=== PATIENT | male | born 1950 | race Caucasian/White ===

== ENCOUNTER 2016-03-26 11:43 | Emergency (ER) | payer MEDICARE ==
[2014-05-01 07:55] VITALS: BP 145/74
[~2016-03-26] VITALS: Ht 182.9 cm; Wt 89.8 kg
[~2016-03-26 11:43] MED LIST: CHOL20004 PO; GLUC100018 PO; OMEG1CAP65 PO
[2016-03-26] MEDS ORDERED: LIDOCAINE 1% / SOD BICARB 8.4% 20 ML VIAL. IJ ONE (13:30)
--- NOTE | 2016-03-26 13:33 | PHYS DOC ---
Past Medical History Past Medical History: No Pertinent History Past Surgical History: No Surgical History Alcohol Use: None Drug Use: None Adult General Chief Complaint Chief Complaint: FINGER INJURY [facility] HPI Patient is a 65 year old male presents emergency department stating that he was trying to remove the details put her from his truck when the tongue came back and dropped on his left ring finger. He states that he is having pain and discomfort along the palmar side of the finger. He has tenderness along the back side of the hand. Patient states his tetanus immunization is up-to-date. He has a U shape laceration with bleeding controlled. Cap refill brisk less than 2 seconds. Patient is right-hand dominant Review of Systems Review of Systems Constitutional: Denies fever or chills [] Eyes: Denies change in visual acuity, redness, or eye pain [] HENT: Denies nasal congestion or sore throat [] Respiratory: Denies cough or shortness of breath [] Cardiovascular: No additional information not addressed in HPI [] GI: Denies abdominal pain, nausea, vomiting, bloody stools or diarrhea [] : Denies dysuria or hematuria [] Musculoskeletal: Denies back pain or joint pain [] Integument: Denies rash or skin lesions. Laceration to the left 4th finger Neurologic: Denies headache, focal weakness or sensory changes [] Current Medications Current Medications Current Medications Medications (Trade) Dose Ordered Sig/Luisa Start Time Stop Time Status Last Admin Dose Admin Lidocaine/Sodium Bicarbonate (Buffered Lidocaine 1%) 20 ml 1X ONCE 03/26/16 13:30 03/26/16 13:33 DC 03/26/16 13:43 20 ML Allergies Allergies Allergies Coded Allergies Type Severity Reaction Last Updated Verified Iodinated Contrast Media - IV Dye Allergy Mild Hives 05/01/14 Yes Physical Exam Physical Exam Constitutional: Well developed, well nourished, no acute distress, non-toxic appearance. [] HENT: Normocephalic, atraumatic, bilateral external ears normal, oropharynx moist, no oral exudates, nose normal. [] Eyes: PERRLA, EOMI, conjunctiva normal, no discharge. [] Neck: Normal range of motion, no tenderness, supple, no stridor. [] Cardiovascular:Heart rate regular rhythm, no murmur [] Lungs & Thorax: No respiratory distress noted Skin: Warm, dry, no erythema, no rash. Patient with a 2 cm U-shaped laceration to the left fourth finger. Bleeding is currently controlled. Back: No tenderness Extremities: No tenderness, no cyanosis, no clubbing, ROM intact, no edema. [] Neurologic: Alert and oriented X 3, normal motor function, normal sensory function, no focal deficits noted. [] Psychologic: Affect normal, judgement normal, mood normal. [] Current Patient Data Vital Signs Vital Signs Date Time Temp Pulse Resp B/P Pulse Ox O2 Delivery O2 Flow Rate FiO2 03/26/16 12:00 97.8 76 16 98 Room Air 97.8 EKG EKG [] Radiology/Procedures Radiology/Procedures [] Course & Med Decision Making Course & Med Decision Making Pertinent Labs and Imaging studies reviewed. (See chart for details) Patient was noted to have a fracture in the distal part of the finger. Sutures was placed in the finger at the laceration site. Patient will be placed on Bactrim 1 tablet twice a day with recommendations to follow-up with orthopedic in the next 3-5 days. Keep the site clean and dry clean the site with soap and water and apply antibiotic ointment to the area twice a day. Sutures out in 7- 10 days. Watch for signs and symptoms of infection: Redness, warmth, tenderness or any yellow/greenish drainage of a come from the site. If this should occur follow-up through primary care physician immediately. [] Dragon Disclaimer Dragon Disclaimer This electronic medical record was generated, in whole or in part, using a voice recognition dictation system. Departure Departure Impression: Primary Impression: Open fracture of phalanx of left ring finger Disposition: 01 HOME, SELF-CARE Condition: STABLE Referrals: VAUGHN HERRMANN MD (PCP) Patient Instructions: Finger Fracture-Brief, Laceration Care, Adult, Easy-to- Read Additional Instructions: Keep the area clean and dry. Clean the site with soap and water and apply antibiotic ointment to the area twice a day. Watch for signs and symptoms of infection: Redness, warmth, tenderness or any yellow/greenish drainage of a come from the site physician occur follow-up through primary care physician immediately. Tylenol or ibuprofen for pain and discomfort. Medication as prescribed. Follow-up with orthopedic in the next 3-5 days. Wear the splint to follow-up with orthopedic. Return back to emergency prior signs symptoms of become worse. Scripts Sulfamethoxazole/Trimethoprim (Bactrim Ds Tablet)1 Each Tablet1 Tab PO BID #20 TAB Prov:VALE MAHER NP 03/26/16 Laceration/Wound Repair Laceration/Wound Repair : Wound Location: upper extremity Wound's Depth, Shape: superficial Wound Length (cm): 2 Wound Explored: clean Betadine Prep?: Yes Anesthesia: 1% Lidocaine Volume Anesthetic (ccs): 5 Wound Debrided: minimal Wound Repaired With: sutures Suture Size/Type: 4:0, nylon Number of Sutures: 5 Progress Site and soaked in Betadine and water. Approximately 20 minutes. Lidocaine was placed into the area as a digital block. 5 sutures were placed in the site with no difficulty. VALE MAHER NP Mar 26, 2016 13:33
[2016-03-26] MEDS ORDERED: SULF1TAB24 PO (14:09)
--- NOTE | 2016-03-26 14:16 | RAD ---
Three-view left fourth finger radiographs 03/26/2016 Clinical history: Laceration to the left fourth finger. A PA digital radiograph of the left hand was obtained. Oblique and lateral digital radiographs of the left fourth finger were obtained. An acute oblique nondisplaced fracture of the proximal diaphysis of the distal phalanx of the left fourth finger is seen. No additional fracture is noted. No radiopaque foreign body is seen. Impression: Acute nondisplaced fracture of the distal phalanx of the left fourth finger.
== END 2016-03-26 14:24 | disposition home or self-care (01) ==
LOC: ER 11:43
DX: S62.665B Nondisplaced fracture of distal phalanx of left ring finger, initial encounter for open fracture (principal); Z91.041 Radiographic dye allergy status; W20.8XXA Other cause of strike by thrown, projected or falling object, initial encounter; Y93.89 Activity, other specified; Y99.8 Other external cause status; Y92.89 Other specified places as the place of occurrence of the external cause
CPT/HCPCS: 12001; 29130; 73140; 99284-25

== ENCOUNTER 2016-04-04 18:21 | Emergency (ER) | payer MEDICARE ==
[~2016-04-04 18:21] MED LIST changes: +SULF1TAB24 PO
[2016-04-04 18:54] VITALS: BP 115/68
--- NOTE | 2016-04-04 18:54 | PHYS DOC ---
Past Medical History Past Medical History: No Pertinent History Past Surgical History: No Surgical History Alcohol Use: None Drug Use: None Adult General Chief Complaint Chief Complaint: SUTURE/STAPLE REMOVAL [facility] HPI Patient is a 65 year old presents emergency department to have his sutures removed from his left ring finger. Patient states he's had the sutures in for approximately 9 days. Patient denies any drainage discharge or redness from the site. He denies any fever, chills or any nausea vomiting. Review of Systems Review of Systems Constitutional: Denies fever or chills [] Eyes: Denies change in visual acuity, redness, or eye pain [] HENT: Denies nasal congestion or sore throat [] Respiratory: Denies cough or shortness of breath [] Cardiovascular: No additional information not addressed in HPI [] GI: Denies abdominal pain, nausea, vomiting, bloody stools or diarrhea [] : Denies dysuria or hematuria [] Musculoskeletal: Denies back pain or joint pain [] Integument: Denies rash or skin lesions. Patient states that he is here to have sutures removed from his left ring finger. Neurologic: Denies headache, focal weakness or sensory changes [] Allergies Allergies Allergies Coded Allergies Type Severity Reaction Last Updated Verified Iodinated Contrast Media - Oral and Allergy Mild Hives 05/01/14 Yes Physical Exam Physical Exam Constitutional: Well developed, well nourished, no acute distress, non-toxic appearance. [] Skin: Warm, dry, no erythema, no rash. Patient with 5 sutures are intact on the left ring finger. Site appears to be without redness drainage discharge. Extremities: No tenderness, no cyanosis, no clubbing, ROM intact, no edema. [] Neurologic: Alert and oriented X 3, normal motor function, normal sensory function, no focal deficits noted. [] Psychologic: Affect normal, judgement normal, mood normal. [] EKG EKG [] Radiology/Procedures Radiology/Procedures [] Course & Med Decision Making Course & Med Decision Making Pertinent Labs and Imaging studies reviewed. (See chart for details) 5 sutures were removed without difficulty. No drainage discharge or redness noted around the site. No bleeding noted. Patient was provided with discharge instructions treatment regimens and follow-up recommendations. Patient was provided with signs and symptoms to return back to emergency department. Patient agrees with discharge instructions treatment regimens and follow-up recommendations. [] Dragon Disclaimer Dragon Disclaimer This electronic medical record was generated, in whole or in part, using a voice recognition dictation system. Departure Departure Impression: Primary Impression: Visit for suture removal Disposition: 01 HOME, SELF-CARE Condition: STABLE Referrals: VAUGHN HERRMANN MD (PCP) Patient Instructions: Suture Removal-Brief Additional Instructions: Activity as tolerated. Keep the area clean and dry. Place antibiotic ointment over the site twice a day. Follow-up the primary care physician if you have any redness warmth tenderness or any drainage or discharge from the area. Return back to emergency percent symptoms of become worse. VALE MAHER NP Apr 04, 2016 18:54
== END 2016-04-04 18:57 | disposition home or self-care (01) ==
LOC: ER 18:21
DX: S61.215D Laceration without foreign body of left ring finger without damage to nail, subsequent encounter (principal); Z91.041 Radiographic dye allergy status; W45.8XXD Other foreign body or object entering through skin, subsequent encounter; Y93.89 Activity, other specified; Y92.89 Other specified places as the place of occurrence of the external cause; Y99.8 Other external cause status
CPT/HCPCS: 99281

== ENCOUNTER → 2016-05-11 | Outpatient (CLI) | payer MEDICARE | END | disposition home or self-care (01) | LOC: LAB 09:44 | PROVIDERS: ATTEND Urology | DX: Z12.5 Encounter for screening for malignant neoplasm of prostate (principal); R97.20 Elevated prostate specific antigen [PSA] | CPT/HCPCS: 36415; G0103 ==

== ENCOUNTER → 2017-12-05 | Outpatient (CLI) | payer MEDICARE ==
[~2017-12-05] MED LIST changes: -CHOL20004 PO; +CHOL200074 PO
--- NOTE | 2017-12-05 12:43 | KCIC ---
MRI Lumbar Spine without contrast History: Low back pain with left lower extremity radiculopathy, severe pain into the left leg Technique: Multiplanar, multi sequential noncontrast MR imaging was performed of the lumbar spine. Contrast: None Comparison: None Findings: Other than superior L5 Schmorl's node, lumbar vertebral body stature is maintained. There is grade 1 anterior spondylolisthesis L3-4 and L4-5. Conus terminates at L1. There is nonspecific edema of the posterior subcutaneous fat of the lower back. There is more advanced narrowing of the L5-S1 intervertebral disc space, also fairly advanced degenerative disc disease L1-L2, to a lesser degree variably L2-3 through L4-5. There is [id number] levoscoliosis centered about L2-3. There is minimal right lateral subluxation L1 relative L2. There is very minimal left lateral subluxation of L3 relative L4. There is hemangioma or focus of fatty marrow replacement of the superior L3 vertebral body extending to the endplate. Not fully evaluated, there is appearance of a mass projecting into the region of the base of the urinary bladder with mass about 2.7 cm CC by 2.6 cm AP. L1-L2: There is disc osteophyte complex. There is mild to moderate facet degenerative change greater on the right. There is prominence of posterior epidural fat. There is mild narrowing of the far right lateral recess. There is fairly severe narrowing of the right neural foramen with contact exiting right L1 nerve root. Left neural foramen is overall adequate although disc osteophyte complex near the extraforaminal left L1 nerve root. L2-L3: There is disc osteophyte complex and bulge, likely shallow central protrusion. There is moderate facet degenerative change and mild buckling of the ligamentum flavum. There is prominence of posterior epidural fat. There is mild to moderate narrowing of the far right lateral recess, mild narrowing of the central canal. There is moderate narrowing of the right neural foramen, left neural foramen adequate. L3-L4: There is moderate to severe facet degenerative change and moderate buckling of the ligamentum flavum. There is minimal protrusion more eccentric to the right lateral recess. Combination of findings results in fairly severe spinal stenosis, very limited preserved subarachnoid space, right greater than left lateral recess stenosis. There is mild neural foramina compromise greater on the right. L4-L5: There is moderate to severe facet degenerative change greater on the right. There is mild prominence of posterior epidural fat and buckling of the ligamentum flavum. There is moderate to severe narrowing of the far lateral recesses bilaterally, mild to moderate narrowing of the central canal greater in the transverse dimension. There is mild bilateral neural foramina compromise. L5-S1: There is izpf-wa-aarzbiyj facet degenerative change greater on the left. There is minimal disc osteophyte complex more eccentric to the far left lateral recess, very mild narrowing of the far left lateral recess. There is fairly severe narrowing of the left neural foramen mostly from disc osteophyte complex, contact of the exiting left L5 nerve root extending to distal neural foramen and proximal extraforaminal region. Right neural foramen is adequate. Impression: 1. Not fully evaluated, there is mass projecting into the base of the urinary bladder, uncertain if due to mass arising from urinary bladder versus prostate mass. 2. There is severe spinal stenosis L3-4, also moderate to severe lateral recess stenosis bilaterally at L4-5, mild to moderate right lateral recess stenosis at L2-3. 3. There is multilevel neural foramina compromise, more significant narrowing on the left at L5-S1 and on the right at L1-2, lesser degree of narrowing on the right at L2-3, and minimal narrowing bilaterally at L3-4 and L4-5. 4. There is more advanced degenerative disc disease L1-2 and L5-S1, to lesser degree at other levels. There is lumbar levoscoliosis. There is multilevel lumbar facet degenerative change and mild abnormal alignment as stated. Electronically signed by: Pepe Maurer MD (12/05/2017 12:40 PM) [facility]
== END | disposition home or self-care (01) ==
LOC: KCIC MRI 11:10
PROVIDERS: ATTEND Family Medicine
DX: M51.36 Other intervertebral disc degeneration, lumbar region (principal); M51.37 Other intervertebral disc degeneration, lumbosacral region; M48.061 Spinal stenosis, lumbar region without neurogenic claudication; M48.07 Spinal stenosis, lumbosacral region; M25.78 Osteophyte, vertebrae; M43.16 Spondylolisthesis, lumbar region
CPT/HCPCS: 72148

== ENCOUNTER → 2017-12-26 | Outpatient (CLI) | payer MEDICARE ==
--- NOTE | 2017-12-26 17:23 | RAD ---
Three-view lumbar spine dated 12/26/2017. Comparison made to 12/05/2017. CLINICAL INDICATION: Pain. Left foot drop. FINDINGS: Lateral view and flexion extension views were obtained. Slight anterolisthesis of L4 on L5, stable on flexion-extension imaging. Sagittal alignment is otherwise anatomic. Vertebral body heights are maintained. Moderate endplate hypertrophic changes throughout with multilevel mild disc space narrowing. Moderate arthrosis lower lumbar apophyseal joints. IMPRESSION: 1. No acute radiographic abnormality. 2. Grade 1 anterolisthesis of L4 and L5 with no evidence of instability on the flexion extension views 3. Moderate lower lumbar spondylosis. Electronically signed by: Andre Wu MD (12/26/2017 5:20 PM) [facility]
== END | disposition home or self-care (01) ==
LOC: RAD 16:24
PROVIDERS: ATTEND Neurological Surgery
DX: M43.16 Spondylolisthesis, lumbar region (principal); M47.896 Other spondylosis, lumbar region
CPT/HCPCS: 72100

== ENCOUNTER → 2018-02-16 | Outpatient (CLI) | payer MEDICARE ==
[~2018-02-16] MED LIST changes: +DICL50TA2 PO; +DOCU-109 PO; +HYDR-3164 PO; +METH-38 PO
[2018-02-16 13:19] LABS: BASO # 0.1 x10^3/uL (0.0-0.2); BASO % 1 % (0-3); EOS # 0.2 x10^3/uL (0.0-0.7); EOS % 3 % (0-3); HEMATOCRIT 46.8 % (39.0-53.0); HEMOGLOBIN 15.9 g/dL (13.0-17.5); LYMPH # 1.4 x10^3/uL (1.0-4.8); LYMPH % 18 % (24-48); MEAN CORPUSCULAR HEMOGLOBIN 31 pg (25-35); MEAN CORPUSCULAR HGB CONC 34 g/dL (31-37); MEAN CORPUSCULAR VOLUME 91 fL (79-100); MONO # 0.7 x10^3/uL (0.0-1.1); MONO % 9 % (0-9); NEUT # 5.1 x10^3uL (1.8-7.7); NEUT % 69 % (31-73); PLATELET COUNT 230 x10^3/uL (140-400); RED BLOOD COUNT 5.13 x10^6/uL (4.30-5.70); RED CELL DISTRIBUTION WIDTH 13.7 % (11.5-14.5); WHITE BLOOD COUNT 7.4 x10^3/uL (4.0-11.0)
[2018-02-16 13:43] LABS: ALBUMIN 3.2 g/dL (3.4-5.0); ALBUMIN/GLOBULIN RATIO 0.8 (1.0-1.7); CALCIUM 8.7 mg/dL (8.5-10.1); CREATININE 0.9 mg/dL (0.7-1.3); GFR 83.9; POTASSIUM 4.3 mmol/L (3.5-5.1); TOTAL BILIRUBIN 0.6 mg/dL (0.2-1.0); TOTAL PROTEIN 7.2 g/dL (6.4-8.2)
--- NOTE | 2018-02-19 11:54 | NUR ---
PRE - OP LAB REPORTS IN [facility].
== END | disposition home or self-care (01) ==
LOC: SURGPAT 12:32
PROVIDERS: ATTEND Neurological Surgery
DX: Z01.818 Encounter for other preprocedural examination (principal); M48.061 Spinal stenosis, lumbar region without neurogenic claudication; Z88.8 Allergy status to other drugs, medicaments and biological substances
CPT/HCPCS: 36415; 80053; 85025; 87641

== ENCOUNTER 2018-02-23 07:02 | Observation (INO) | payer MEDICARE ==
[~2018-02-23] VITALS: Ht 182.9 cm; Wt 94.3 kg
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
[~2018-02-23 07:02] MED LIST changes: +BACITRACIN 50,000 UNIT in IV NORMAL SALINE 1000ML BAG 1,000 ML IRR ONE; +BUPIVAC MPF-EPI 0.5%-1:200000 30 ML VIAL. ONE; -DOCU-109 PO; +GELATIN SPONGE SIZE 100. ONE; -HYDR-3164 PO; +HYDROmorphone 2 MG/ML VIAL IV PRN; +IV RINGERS,LACTATED 1000ML 1,000 ML IV SCH; +KETOROLAC 60 MG/2 ML INJ FOR OR. ONE; +LIDOCAINE 1% PF 2 ML VIAL. ID PRN; -METH-38 PO; +MORPHINE SULFATE 2 MG/ML VIAL. IV PRN; +ONDANSETRON PF 4 MG/2 ML VIAL. IV PRN; +PROCHLORPERAZINE 10 MG/2 ML VIAL. IV PRN; +THROMBIN TOPICAL 20,000 UNIT SPRAY.SYRN KIT TP ONE; +fentaNYL PF VIAL 100 MCG/2 ML VIAL IV PRN
[2018-02-23] MEDS ORDERED: REMIFENTANIL 2 MG VIAL. IV ONE (08:08)
[2018-02-23] MEDS ORDERED: ROCURONIUM 50 MG/5 ML VIAL. ONE (08:08)
[2018-02-23] MEDS ORDERED: PROPOFOL 20 ML IV ONE (08:08)
[2018-02-23] MEDS ORDERED: LIDOCAINE 2% PF Vial for OR 5 ML VIAL. ONE (08:08)
[2018-02-23] MEDS ORDERED: ONDANSETRON PF 4 MG/2 ML VIAL. ONE (08:08)
[2018-02-23] MEDS ORDERED: DEXAMETHASONE SOD PHOS 20 MG/5 ML VIAL. ONE (08:08)
[2018-02-23] MEDS ORDERED: PHENYLEPHRINE 10 MG/ML VIAL. ONE (08:08)
[2018-02-23] MEDS ORDERED: PROPOFOL 50 ML IV ONE ×2 (08:08→09:58)
[2018-02-23] MEDS ORDERED: 0.9 % SODIUM CHLORIDE 20 ML VIAL. IJ ONE ×2 (08:11)
[2018-02-23] MEDS ORDERED: MIDAZOLAM HCL/PF 2 MG/2 ML VIAL. ONE (08:30)
[2018-02-23] MEDS ORDERED: DESFLURANE > 120 MINUTES IH ONE (10:33)
[2018-02-23] MEDS ORDERED: NEOSTIGMINE METHYLSULFATE 5 MG/5 ML SYRINGE. ONE (10:35)
--- NOTE | 2018-02-23 10:56 | DISCH ---
DISCHARGE INSTRUCTIONS Condition on Discharge Condition on Discharge: Stable Activity After Discharge Activity Instructions for Disc: Activity as tolerated, Avoid exertion Other activity instructions: no driving for a week Bathing Instructions: Shower-keep dressing dry, No Tub Bath until see Lifting Instructions after Dis: No heavy lifting, No pulling or pushing, Do not lift >10 pounds Diet after Discharge Additional Diet Restrictions: resume home diet Wound Incision Care Wound/Incision Care: Ice to area for comfort Other wound/incision instructi: may remove dressing in 48 hrs if dry then may shower, no soaking Contacting the after DC Call your doctor for: Concerns you may have Follow-Up Follow up with: Dr. Sosa's nurse in 2 weeks [phone] HOSSEIN SOSA MD Feb 23, 2018 10:56
[2018-02-23] MEDS ORDERED: METH-38 PO (11:00)
[2018-02-23] MEDS ORDERED: HYDR-3164 PO (11:00)
[2018-02-23] MEDS ORDERED: DOCU-109 PO (11:00)
[2018-02-23] MEDS ORDERED: fentaNYL PF VIAL 100 MCG/2 ML VIAL ONE (11:46)
[2018-02-23] MEDS ORDERED: HYDROcodone/APAP 7.5/325MG 1 TAB TABLET PO ONE (13:00)
[2018-02-23] MEDS ORDERED: HYDROcodone/APAP 5/325MG 1 TAB TABLET ONE ×2 (13:04→13:21)
[2018-02-23] MEDS ORDERED: HYDROcodone/APAP 5/325MG 1 TAB TABLET PO ONE ×2 (13:45)
--- NOTE | 2018-02-23 15:20 | NUR ---
Arrived to unit by w/c from PACU. Alert and oriented x's 4. Midback dressing is d/i. Moves all extremities. Still has some numbness bottom of left foot and middle toe. Anxious due to inability to void and only reason why he is still here. Ambulating hallways with spouse. Cont. monitor.
[2018-02-23 16:30] VITALS: BP 135/78
--- NOTE | 2018-02-23 17:01 | NUR ---
Still unable to void. Getting uncomfortable. Orders for st.cath. Got some resistance and got less 5 cc pink tinge urine. Removed catheter and blood drip out. Still uncomfortable. Notified Luzma BABCOCK and gave orders for consult with urology. Cont. monitor. Resting in bed.
--- NOTE | 2018-02-23 18:10 | NUR ---
Spoke with Dr. Colon, who was in surgery. Discussed situation. Asked for doctor to place figueroa? Spoke with filter plant supervisor and discussed about using Coude. Jewelry Inspector, Lyn, sent a Coude 14 fr catheter.
--- NOTE | 2018-02-23 18:30 | NUR ---
Placed figueroa catheter with 14 fr coude. Had no resistance when placing catheter. Drain clear yellow urine to DD over 600mls. Pt tolerated it well. Feels lots better. Cont. monitor.
[2018-02-23 19:00] VITALS: BP 125/70
--- NOTE | 2018-02-23 19:20 | NUR ---
Made walking rounds with night nurse, Charlette, and noted urine wine color in figueroa bag. Charlette stated that she will notify Dr. Mendez
--- NOTE | 2018-02-23 19:55 | NUR ---
Noticed wine-colored urine during walking rounds. Called Dr. Colon around 0755 and no orders were given. Will continue to monitor.
[2018-02-23] MEDS ORDERED: HYDROcodone/APAP 5/325MG 1 TAB TABLET PO PRN (21:30)
[2018-02-23] MEDS ORDERED: METHOCARBAMOL 750 MG TABLET PO PRN (21:30)
[2018-02-23] MEDS ORDERED: fentaNYL PF VIAL 100 MCG/2 ML VIAL IV PRN ×2 (21:30)
[2018-02-23] MEDS: HYDROcodone/APAP 5/325MG 1 TAB TABLET PO PRN (21:50)
[2018-02-23 23:00] VITALS: BP 101/64
--- NOTE | 2018-02-24 00:03 | NUR ---
Pt. stated he was having pain this evening. Dr. Ward cashier and salesperson for Dr. Gonsalez. She stated since pt. will be staying the night she wanted to give more orders. Orders were given and put in computer. This nurse let her know about blood in urine. Will continue to monitor.
[2018-02-24 03:25] VITALS: BP 105/61
[2018-02-24] MEDS: HYDROcodone/APAP 5/325MG 1 TAB TABLET PO PRN ×2 (06:13→12:28)
[2018-02-24 07:00] VITALS: BP 119/62
[2018-02-24] MEDS ORDERED: DOCUSATE SODIUM 100 MG CAPSULE. PO SCH (09:00)
--- NOTE | 2018-02-24 09:04 | PDOC2 ---
UROLOGY CONSULT Date of Consult Date of Consult DATE: 02/24/18 TIME: 08:58 Reason for Consult Reason for Consult: urinary retention History of Present Illness Reason for Visit: 67 yo male with urinary retention on evening of 02/24/18 following back surgery. Nursing staff initially had difficulty with catheter placement, where eventually able to place a coude with return of light red urine. He reports BPH for some time, sees Dr. Silva. Previously took flomax and finasteride without much improvement. Recently has not been taking meds due to minimal BPH bother. Had cystoscopy in recent past that confirmed prostate enlargement. No dysuria, fevers. Currently comfortable. Past Medical History Musculoskeletal: low back pain Renal/: Other (BPH) Past Surgical History Past Surgical History: Other (back surgery) Current Medications Current Medications Current Medications Acetaminophen/ Hydrocodone Bitart (Lortab 5/325) 1 tab 1X ONCE PO Last administered on 02/23/18at 13:22; Start 02/23/18 at 13:45; Stop 02/23/18 at 13:46; Status DC Acetaminophen/ Hydrocodone Bitart (Lortab 5/325) 1 tab PRN Q6HRS PRN PO MODERATE PAIN; Start 02/23/18 at 21:30 Acetaminophen/ Hydrocodone Bitart (Lortab 5/325) 1 tab STK-MED ONCE .ROUTE ; Start 02/23/18 at 13:04; Stop 02/23/18 at 13:06; Status DC Acetaminophen/ Hydrocodone Bitart (Lortab 5/325) 1 tab STK-MED ONCE .ROUTE ; Start 02/23/18 at 13:21; Stop 02/23/18 at 13:22; Status DC Acetaminophen/ Hydrocodone Bitart (Lortab 5/325) 2 tab 1X ONCE PO ; Start at 13:45; Stop 02/23/18 at 13:46; Status UNV Acetaminophen/ Hydrocodone Bitart (Lortab 5/325) 2 tab PRN Q6HRS PRN PO SEVERE PAIN Last administered on 02/24/18at 06:13; Start 02/23/18 at 21:30 Acetaminophen/ Hydrocodone Bitart (Lortab 7.5/325) 1 tab 1X ONCE PO ; Start 02/23/18 at 13:00; Stop 02/23/18 at 13:08; Status DC Desflurane (Suprane) 90 ml STK-MED ONCE IH ; Start 02/23/18 at 10:33; Stop at 10:34; Status DC Docusate Sodium (Colace) 100 mg DAILY PO ; Start 02/24/18 at 09:00 Fentanyl Citrate (Fentanyl 2ml Vial) 25 mcg PRN Q2HR PRN IV MODERATE PAIN; Start 02/23/18 at 21:30 Fentanyl Citrate (Fentanyl 2ml Vial) 50 mcg PRN Q2HR PRN IV SEVERE PAIN; Start 02/23/18 at 21:30 Fentanyl Citrate (Fentanyl 2ml Vial) 100 mcg STK-MED ONCE .ROUTE ; Start at 11:46; Stop 02/23/18 at 11:48; Status DC Methocarbamol (Robaxin) 750 mg PRN Q8HRS PRN PO MUSCLE SPASMS; Start 02/23/18 at 21:30 Neostigmine Methylsulfate (Neostigmine Methylsulfate) 5 mg STK-MED ONCE .ROUTE ; Start 02/23/18 at 10:35; Stop 02/23/18 at 10:37; Status DC Propofol 50 ml @ As Directed STK-MED ONCE IV ; Start 02/23/18 at 09:58; Stop 02/23 at 09:59; Status DC Tamsulosin HCl (Flomax) 0.4 mg 1X ONCE PO ; Start 02/24/18 at 09:30; Stop at 09:31 Allergies Allergies: Coded Allergies: ciprofloxacin (Verified Allergy, Severe, Hives, 02/23/18) monosodium glutamate (Verified Allergy, Severe, Hives, 02/23/18) Iodinated Contrast- Oral and IV Dye (Verified Allergy, Intermediate, Hives , 02/23/18) ROS Review Of Systems: except as noted in HPI CONSTITUTIONAL: No fever or chills EYES: No recent changes SKIN: No rash or itching CARDIOVASCULAR: No chest pain, syncope, palpitations, or edema RESPIRATORY: No SOB or cough GASTROINTESTINAL: No nausea, vomiting or abdominal pain NEUROLOGICAL: No headaches or weakness ENDOCRINE: No cold or heat intolerance GENITOURINARY: No urgency or frequency of urination MUSCULOSKELETAL: No back pain or joint pain LYMPHATICS: No enlarged lymph nodes PSYCHIATRIC: No anxiety or depression Physical Exam Physical Exam: General: Pleasant, no acute distress, well groomed ENT: moist oral mucosa, normal dentition Neck: Trachea midline, no masses Respiratory: unlabored breathing Abdomen: nontender, nondistended, no hepatosplenomegaly, no masses Skin: no rashes or skin lesions on visualized skin Psych: normal mood, affect. Alert and oriented x 3. figueroa with light red urine Vitals VITALS Vital Signs Date Time Temp Pulse Resp B/P (MAP) Pulse Ox O2 Delivery O2 Flow Rate FiO2 02/24/18 07:15 94 Room Air 02/24/18 07:00 98.5 73 18 119/62 (81) 98.5 02/23/18 12:34 3.0 Assessment/Plan Assessment/Plan Urinary retention: he would like to go home and follow-up as outpatient. Start flomax 0.4 mg daily - script given. Keep in figueroa, f/u 02/26/18 for voiding trial, I gave him phone number for the office. LIZY GONZALEZ MD Feb 24, 2018 09:03
[2018-02-24] MEDS ORDERED: TAMSULOSIN 0.4 MG CAP.ER.24H. PO ONE (09:30)
[2018-02-24 11:00] VITALS: BP 112/66
--- NOTE | 2018-02-24 12:35 | NUR ---
This nurse went over discharge instructions with family at bedside, follow up included, dressing change, and all questions asked were answered. Education completed on surgery performed, and catheter care/leg bag. All belongings were collected and returned to patient, patient was escorted out via wheelchair by KATHY Galeana.
--- NOTE | 2018-02-24 12:41 | PDOC ---
PROGRESS NOTES Subjective Subjective POD #1 up in chair legs feel better has been up ambulating able tp stand longer Objective Objective Vital Signs Date Time Temp Pulse Resp B/P (MAP) Pulse Ox O2 Delivery O2 Flow Rate FiO2 02/24/18 12:28 96 Room Air 02/24/18 11:00 98.4 67 18 112/66 (81) 98.4 02/23/18 12:34 3.0 Intake and Output 02/24/18 07:01 Intake Total 3530 ml Output Total 2525 ml Balance 1005 ml Intake Oral 1180 ml IV Total 2350 ml Output Urine Total 2500 ml Estimated Blood Loss 25 ml Physical Exam General: Alert, Oriented X3, Cooperative, No acute distress MUSCULOSKELETAL: Other (MULLER) Skin: Other (dressing C,D,I) Plan Plan of Care okay to dc with catheter f/u in 2 weeks f/u with urology Comment Review of Relevant I have reviewed the following items caden (where applicable) has been applied. Medications Current Medications Bacitracin 89967 unit/Sodium Chloride 1,000 ml @ 1,000 mls/hr 1X ONCE IRR Last administered on 02/23/18at 09:26; Start 02/23/18 at 06:00; Stop 02/23/18 at 06: 59; Status DC Cefazolin Sodium/ Dextrose 50 ml @ 100 mls/hr 1X ONCE IV Last administered on 02/23/18at 09:10; Start 02/23/18 at 06:00; Stop 02/23/18 at 06:29; Status DC Ondansetron HCl (Zofran) 4 mg PRN Q6HRS PRN IV NAUSEA/VOMITING; Start 02/23/18 at 07:00; Stop 02/24/18 at 06:59; Status DC Fentanyl Citrate (Fentanyl 2ml Vial) 25 mcg PRN Q5MIN PRN IV MILD PAIN; Start 02/23/18 at 07:00; Stop 02/24/18 at 06:59; Status DC Fentanyl Citrate (Fentanyl 2ml Vial) 50 mcg PRN Q5MIN PRN IV MODERATE TO SEVERE PAIN Last administered on 02/23/18at 12:34; Start 02/23/18 at 07:00; Stop at 06:59; Status DC Morphine Sulfate (Morphine Sulfate) 1 mg PRN Q10MIN PRN IV SEVERE PAIN; Start 02/23/18 at 07:00; Stop 02/24/18 at 06:59; Status DC Ringer's Solution 1,000 ml @ 30 mls/hr Q24H IV Last administered on 02/23/18at 07:48; Start 02/23/18 at 07:00; Stop 02/23/18 at 18:59; Status DC Lidocaine HCl (Xylocaine-Mpf 1% 2ml Vial) 2 ml PRN 1X PRN ID PRIOR TO IV START ; Start 02/23/18 at 07:00; Stop 02/24/18 at 06:59; Status DC Hydromorphone HCl (Dilaudid) 0.5 mg PRN Q10MIN PRN IV SEV PAIN, Second choice; Start 02/23/18 at 07:00; Stop 02/24/18 at 06:59; Status DC Prochlorperazine Edisylate (Compazine) 5 mg PACU PRN PRN IV NAUSEA, MRX1; Start 02/23/18 at 07:00; Stop 02/24/18 at 06:59; Status DC Gelatin (Gelfoam Size 100) 1 each STK-MED ONCE .ROUTE Last administered on 02/23at 09:26; Start 02/23/18 at 06:54; Stop 02/23/18 at 06:55; Status DC Bupivacaine HCl/ Epinephrine Bitart (Sensorcain-Mpf Epi 0.5%-1:[id number]) 30 ml STK -MED ONCE .ROUTE Last administered on 02/23/18at 09:26; Start 02/23/18 at 06:54; Stop 02/23/18 at 06:56; Status DC Ketorolac Tromethamine (Toradol For Or Only) 60 mg STK-MED ONCE .ROUTE Last administered on 02/23/18at 09:26; Start 02/23/18 at 06:54; Stop 02/23/18 at 06:56; Status DC Thrombin 20,000 unit STK-MED ONCE TP Last administered on 02/23/18at 09:26; Start 02/23/18 at 06:54; Stop 02/23/18 at 06:56; Status DC Propofol 20 ml @ As Directed STK-MED ONCE IV ; Start 02/23/18 at 08:08; Stop 02/23 at 08:11; Status DC Dexamethasone Sodium Phosphate (Decadron) 20 mg STK-MED ONCE .ROUTE ; Start 02/23 at 08:08; Stop 02/23/18 at 08:11; Status DC Lidocaine HCl (Lidocaine Pf 2% Vial) 5 ml STK-MED ONCE .ROUTE ; Start 02/23/18 at 08:08; Stop 02/23/18 at 08:12; Status DC Ondansetron HCl (Zofran) 4 mg STK-MED ONCE .ROUTE ; Start 02/23/18 at 08:08; Stop 02/23/18 at 08:12; Status DC Phenylephrine HCl (Jey-Synephrine Inj) 10 mg STK-MED ONCE .ROUTE ; Start at 08:08; Stop 02/23/18 at 08:13; Status DC Propofol 50 ml @ As Directed STK-MED ONCE IV ; Start 02/23/18 at 08:08; Stop 02/23 at 08:13; Status DC Rocuronium [place] (Zemuron) 50 mg STK-MED ONCE .ROUTE ; Start 02/23/18 at 08:08 ; Stop 02/23/18 at 08:14; Status DC Remifentanil HCl (Ultiva) 2 mg STK-MED ONCE IV ; Start 02/23/18 at 08:08; Stop at 08:14; Status DC Sodium Chloride (SODIUM CHLORIDE 20ml) 20 ml STK-MED ONCE IJ ; Start 02/23/18 at 08:11; Stop 02/23/18 at 08:16; Status DC Sodium Chloride (SODIUM CHLORIDE 20ml) 20 ml STK-MED ONCE IJ ; Start 02/23/18 at 08:11; Stop 02/23/18 at 08:16; Status DC Midazolam HCl (Versed) 2 mg STK-MED ONCE .ROUTE ; Start 02/23/18 at 08:30; Stop 02/23/18 at 08:32; Status DC Propofol 50 ml @ As Directed STK-MED ONCE IV ; Start 02/23/18 at 09:58; Stop 02/23 at 09:59; Status DC Desflurane (Suprane) 90 ml STK-MED ONCE IH ; Start 02/23/18 at 10:33; Stop at 10:34; Status DC Neostigmine Methylsulfate (Neostigmine Methylsulfate) 5 mg STK-MED ONCE .ROUTE ; Start 02/23/18 at 10:35; Stop 02/23/18 at 10:37; Status DC Fentanyl Citrate (Fentanyl 2ml Vial) 100 mcg STK-MED ONCE .ROUTE ; Start at 11:46; Stop 02/23/18 at 11:48; Status DC Acetaminophen/ Hydrocodone Bitart (Lortab 7.5/325) 1 tab 1X ONCE PO ; Start 02/23/18 at 13:00; Stop 02/23/18 at 13:08; Status DC Acetaminophen/ Hydrocodone Bitart (Lortab 5/325) 1 tab STK-MED ONCE .ROUTE ; Start 02/23/18 at 13:04; Stop 02/23/18 at 13:06; Status DC Acetaminophen/ Hydrocodone Bitart (Lortab 5/325) 1 tab STK-MED ONCE .ROUTE ; Start 02/23/18 at 13:21; Stop 02/23/18 at 13:22; Status DC Acetaminophen/ Hydrocodone Bitart (Lortab 5/325) 1 tab 1X ONCE PO Last administered on 02/23/18at 13:22; Start 02/23/18 at 13:45; Stop 02/23/18 at 13:46; Status DC Acetaminophen/ Hydrocodone Bitart (Lortab 5/325) 2 tab 1X ONCE PO ; Start at 13:45; Stop 02/23/18 at 13:46; Status UNV Acetaminophen/ Hydrocodone Bitart (Lortab 5/325) 1 tab PRN Q6HRS PRN PO MODERATE PAIN; Start 02/23/18 at 21:30 Acetaminophen/ Hydrocodone Bitart (Lortab 5/325) 2 tab PRN Q6HRS PRN PO SEVERE PAIN Last administered on 02/24/18at 12:28; Start 02/23/18 at 21:30 Methocarbamol (Robaxin) 750 mg PRN Q8HRS PRN PO MUSCLE SPASMS; Start 02/23/18 at 21:30 Fentanyl Citrate (Fentanyl 2ml Vial) 25 mcg PRN Q2HR PRN IV MODERATE PAIN; Start 02/23/18 at 21:30 Fentanyl Citrate (Fentanyl 2ml Vial) 50 mcg PRN Q2HR PRN IV SEVERE PAIN; Start 02/23/18 at 21:30 Docusate Sodium (Colace) 100 mg DAILY PO Last administered on 02/24/18at 09:33; Start 02/24/18 at 09:00 Tamsulosin HCl (Flomax) 0.4 mg 1X ONCE PO Last administered on 02/24/18at 09:33 ; Start 02/24/18 at 09:30; Stop 02/24/18 at 09:31; Status DC Active Scripts Active Robaxin-750 (Methocarbamol) 750 Mg Tablet 750 Mg PO TID PRN PRN Colace (Docusate Sodium) 100 Mg Capsule 100 Mg PO BID [place] 5-325 Tablet (Acetaminophen/Hydrocodone Bitart) 1 Each Tablet 1-2 Tab PO Q4-6HRS Reported Diclofenac Potassium 50 Mg Tablet 1 Tab PO BID Vitals/I & O Vital Sign - Last 24 Hours 02/23/18 02/23/18 02/23/18 02/23/18 12:47 13:22 15:18 16:30 Temp 98.2 97.8 97.7 98.2 97.8 97.7 Pulse 94 83 90 Resp 16 16 17 18 B/P (MAP) 129/85 129/71 135/78 (97) Pulse Ox 94 98 99 O2 Delivery Room Air Room Air Room Air Room Air 02/23/18 02/23/18 02/23/18 02/23/18 18:17 19:00 20:00 21:50 Temp 98.0 98.0 Pulse 102 Resp 20 18 B/P (MAP) 125/70 (88) Pulse Ox 93 O2 Delivery Room Air Room Air Room Air Room Air 02/23/18 02/23/18 02/24/18 02/24/18 23:00 23:01 03:25 06:13 Temp 99.0 98.7 99.0 98.7 Pulse 91 65 Resp 20 18 20 20 B/P (MAP) 101/64 (76) 105/61 (76) Pulse Ox 91 94 O2 Delivery Room Air Room Air Room Air 02/24/18 02/24/18 02/24/18 02/24/18 07:00 07:15 08:00 11:00 Temp 98.5 98.4 98.5 98.4 Pulse 73 67 Resp 18 18 B/P (MAP) 119/62 (81) 112/66 (81) Pulse Ox 93 94 96 O2 Delivery Room Air Room Air Room Air Room Air 02/24/18 12:28 Pulse Ox 96 O2 Delivery Room Air Intake and Output 02/23/18 02/23/18 02/24/18 15:01 23:01 07:01 Intake Total 2050 ml 1080 ml 400 ml Output Total 25 ml 1950 ml 550 ml Balance 2025 ml -870 ml -150 ml HOSSEIN SOSA MD Feb 24, 2018 12:41
[2018-02-24 15:00] VITALS: BP 100/65
--- NOTE | 2018-02-26 15:09 | PATHOLOGY ---
[facility] Accession Number: [id number] . 01 Material submitted: . LUMBAR DECOMPRESSION . 01 Clinical history: . Lumbar stenosis . 02 Diagnosis: Segments of fibrocartilaginous, adipose, and skeletal muscle tissue and bone, lumbar decompression: - Degenerative changes of fibrocartilaginous tissue. 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 02 Comment: There is no evidence of an acute inflammatory process or malignancy. 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 02 Electronically signed: . Markus Lee MD, Pathologist NPI- [id number] . 01 Gross description: . Received in formalin labeled "Joey Moore, lumbar decompression," are several pieces of glistening, fibrous tissue measuring 4.1 x 2.1 x 0.9 cm in aggregate dimensions, containing small fragments of possible bone. The tissue is submitted representatively in cassette A1, following decalcification. (TSD; 02/23/2018) TOB/TOB . 02 Pathologist provided ICD-10: M51.36 . 02 CPT . 174412, 743986 Specimen Comment: A courtesy copy of this report has been sent to Specimen Comment: [phone], . Specimen Comment: Report sent to / DR HERRMANN Performed at: 01 [facility] [address], [place] [id number] MD Michael De Jesus MD Phone: [phone] Performed at: 02 [facility] [address], [place] [id number] MD Markus Lee MD Phone: [phone]
--- NOTE | 2018-02-26 15:55 | HP ---
ADMIT DATE: 02/23/2018 ADDENDUM: DATE OF SERVICE AND ADMISSION: 02/23/2018. HOSSEIN SOSA MD DR: PING/sonya JOB#: [id number] / [id number]
--- NOTE | 2018-03-01 19:36 | OP ---
DATE OF SURGERY: 02/23/2018 PREOPERATIVE DIAGNOSES: Lumbar spinal stenosis, L3-L4, L4-L5 with left lumbar radiculopathy and foot drop. POSTOPERATIVE DIAGNOSES: Lumbar spinal stenosis, L3-L4, L4-L5 with left lumbar radiculopathy and foot drop. OPERATION PERFORMED: Left direct laminectomy, L3-L4 and L4-L5 with decompression of dura and nerve root. The operation was done with EMG monitoring, fluoroscopy and microscopic dissection. SURGEON: Alec Sosa M.D. SAFETY GLASS INSTALLER: ERVIN Haider assisted with the surgery. She assisted with the microdecompression as well as the closure. OPERATIVE INDICATIONS: The patient is a very pleasant 67-year-old man who developed intractable back and left leg pain along with a left foot drop. On imaging studies, he had severe stenosis at L4-L5 and moderately severe stenosis at L3-L4 and I recommended lumbar microsurgery to decompress the dura and nerve root. I spoke with him about the surgery and the risks, technique and expected postoperative course and he wished to go ahead. DESCRIPTION OF PROCEDURE: Following general endotracheal anesthesia, the patient was positioned prone on the Eric table. His lumbar region was prepped and draped in standard fashion. ZAY hose and AV impulse boots were applied for DVT prophylaxis. The microscope was draped. Fluoroscopy was draped and brought into the field. Monitoring was established. Ancef 2 g was given less than 1 hour prior to the initiation of the surgery. Using fluoroscopic guidance, an incision was made from L3 to L5. I dissected down through skin, subcutaneous tissue, reflected the paraspinal muscles to the left and placed a Calhoun microdisc retractor. I directed my attention to L4-L5 and using the high speed air drill, I burred down a generous hemilaminotomy. I tilted the patient away and drilled across the midline and then tilted the patient toward me and then drilled in the lateral recess and performed a partial foraminotomy. I grasped and peeled down and pulled from superior to inferolateral the ligamentum flavum, which I then trimmed with a 2.5 mm Fehling Kerrison. I carried my dissection to the medial aspect of the pedicle and superior to this and I fully decompressed the dura and the exiting root. I did palpate the disc, it was flat, no discectomy was warranted. I did a wide decompression. I did use bone wax and I assured myself that the roots were very free. I then went up to L3-L4 and with the microscope using microscopic technique, I performed the identical operation at this level as well. Findings were similar. There was no significant posterior disc bulging. I did use bone wax as well as a bipolar cautery. I performed a partial foraminotomy and a wide decompression at this point and then the nerves were very well decompressed. I irrigated copiously. I removed the retractor to obtain hemostasis in the muscle and I closed the wound in layers with absorbable suture. The skin was closed with 4-0 subcuticular stitch. The operation went very well and the patient was taken to recovery room in excellent condition. I was quite pleased with the surgery. ALEC SOSA MD DR: YOVANA/sonya JOB#: [id number] / [id number] MADDI
== END 2018-02-24 12:35 | disposition home or self-care (01) ==
LOC: SURG 07:02 → 4 NORTH 14:45
PROVIDERS: ADMIT Neurological Surgery; ATTEND Neurological Surgery
DX: M48.062 Spinal stenosis, lumbar region with neurogenic claudication (principal); M54.16 Radiculopathy, lumbar region; M21.372 Foot drop, left foot; R33.8 Other retention of urine; Z79.899 Other long term (current) drug therapy; Z83.3 Family history of diabetes mellitus
CPT/HCPCS: 63047; 63048; 76000; 88304; 88311; 97161; A7015; G0378; G0379; G8978; G8979; G8980; J0690; J1100; J1885; J2001; J2250; J2405; J2704; J2710; J3010; J3490; J7030; J7120

== ENCOUNTER → 2018-04-06 | Outpatient (CLI) | payer MEDICARE ==
[~2018-04-06] MED LIST changes: -BACITRACIN 50,000 UNIT in IV NORMAL SALINE 1000ML BAG 1,000 ML IRR ONE; -BUPIVAC MPF-EPI 0.5%-1:200000 30 ML VIAL. ONE; +DOCU-109 PO; -GELATIN SPONGE SIZE 100. ONE; +HYDR-3164 PO; -HYDROmorphone 2 MG/ML VIAL IV PRN; -IV RINGERS,LACTATED 1000ML 1,000 ML IV SCH; -KETOROLAC 60 MG/2 ML INJ FOR OR. ONE; -LIDOCAINE 1% PF 2 ML VIAL. ID PRN; +METH-38 PO; -MORPHINE SULFATE 2 MG/ML VIAL. IV PRN; -ONDANSETRON PF 4 MG/2 ML VIAL. IV PRN; -PROCHLORPERAZINE 10 MG/2 ML VIAL. IV PRN; -THROMBIN TOPICAL 20,000 UNIT SPRAY.SYRN KIT TP ONE; -fentaNYL PF VIAL 100 MCG/2 ML VIAL IV PRN
--- NOTE | 2018-04-06 10:21 | RAD ---
PQRS Compliance statement: One or more of the following individualized dose reduction techniques were utilized for this examination: 1. Automated exposure control. 2. Adjustment of the mA and/or kV according to patient size. 3. Use of iterative reconstruction technique. Indication:L SIDE PAIN AND GROSS HEMATURIA NO PREV SX: BACK TECHNIQUE: CT abdomen and pelvis without IV contrast with multiplanar reformats. COMPARISON: None FINDINGS: Limited evaluation of solid abdominal and pelvic organs due to lack of IV contrast. Heart is normal in size. No pericardial or pleural effusion. Clear lung bases. Liver is normal in morphology. Spleen is unenlarged. No radiopaque gallstones. Noncontrast appearance of the pancreas is within normal limits. Right adrenal gland within normal limits. Adenomatous hyperplasia of the left adrenal gland. No nephrolithiasis or hydronephrosis. No free pelvic fluid or ascites. No enlarged retroperitoneal or pelvic adenopathy. Small fat-containing left inguinal hernia. Epigastric hernia containing omental fat with neck measuring 2.2 cm and hernia sac measuring 5.1 x 3.1 cm. Prostate is enlarged measuring 7.0 x 6.8 x 6.7 cm. No bowel obstruction. 1.7 x 1.3 cm enlarged right external iliac chain lymph node (series 2 image 181). Circumferential urinary bladder wall thickening is seen. Mild levoscoliosis of the lumbar spine. No suspicious bony lesion. IMPRESSION: Limited evaluation of solid abdominal and pelvic organs due to lack of IV contrast. 1. No nephrolithiasis. 2. Enlarged prostate. Correlate with physical exam and PSA. 3. Circumferential urinary bladder wall thickening may be secondary to chronic outlet obstruction or cystitis. Correlate with urinalysis. 4. Mildly enlarged bilateral external iliac chain lymph nodes, nonspecific likely reactive. 5. Midline small epigastric omental fat-containing hernia. Electronically signed by: Sav Roman DO (04/06/2018 10:19 AM) [id number]
== END | disposition home or self-care (01) ==
LOC: CT 09:16
PROVIDERS: ATTEND Family Medicine
DX: N40.0 Benign prostatic hyperplasia without lower urinary tract symptoms (principal); K43.9 Ventral hernia without obstruction or gangrene; K40.90 Unilateral inguinal hernia, without obstruction or gangrene, not specified as recurrent; R59.0 Localized enlarged lymph nodes
CPT/HCPCS: 74176